=== PATIENT | male | born 1955 | race Caucasian/White ===

== ENCOUNTER 2016-12-05 23:57 | Emergency (ER) | payer BC ==
[~2016-12-05 23:57] MED LIST: ACTOS45 MG; ADULT ASPIRIN81 MG PO; ASPIR 8181 M1 PO; ASPIR 8181 MG; ATORVASTATIN CA40 M1 PO; AZOPT10 ML RIGHT EYE; BECONASE AQ25 GM; CLOPIDOGREL75 M1 PO; COLACE100 M1 PO; COSOPT EYE DROP10 ML RIGHT EYE; COZAAR50 M1 PO; ENTERIC COATED325 M PO; FERREX 150150 M1 PO; FEXOFENADINE HC60 MG; FISH OIL 1,2001 CAP PO; FLEXERIL10 MG PO; GLUCOPHAGE500 MG PO; LASIX40 M1 PO; LEVAQUIN500 M1 PO; LEVEMIR FL100 UNIT/2 SC; LEVEMIR100 UNITS/ SC; LISINOPRIL10 MG; METFORMIN HCL1000 MG; MULTIVITAMIN1 TAB; MULTIVITAMIN1 TAB PO; MULTIVITAMINS1 EAC6 PO; NAPROXEN500 MG PO; NORCO 5/325 TAB1 TAB PO; NOVOLOG FL100 UNIT/2 SC; NOVOLOG100 UNITS/ SC; PERCOCET 7.5/321 TA1 PO; POTASSIUM CHLO20 ME3 PO; PRED FORTE5 ML OP; QNASL8.7 G1; SKELAXIN800 MG PO; SODIUM CHLORIDE IV; TOPROL XL25 M1 PO; TRAVATAN Z5 M1 RIGHT EYE; TYLENOL EXTRA500 M1 PO; ULTRAM50 M1 PO; VANCOMYCIN IV; XALATAN2.5 M1 EACH EYE; ZOCOR20 MG; ZOFRAN ODT4 MG/UDTAB PO; ZOFRAN4 MG PO; ZOLOFT50 M1 PO; ZYRTEC1010 PO; [UNRECOGNIZED DRUG - OTHER] PO
[2016-12-06 00:11] LABS: CARBON DIOXIDE-VENOUS 29 mmol/L (21-33); CREATININE 1.03 mg/dl (0.67-1.17); GLUCOSE 279 mg/dl (65-120); POTASSIUM 4.1 mmol/L (3.5-5.3); SODIUM 135 mmol/L (135-146); eGFR VALUE FOR BLACK 89 mL/Min
[2016-12-06 00:13] LABS: BASO % 0.9 % (0-2); BASO ABSOLUTE COUNT 0.1 tho/cmm (0.0-0.2); EOS % 5.3 % (0-7); EOSINOPHIL ABSOLUTE COUNT 0.4 tho/cmm (0.0-0.7); HCT-HEMATOCRIT 35.9 % (36.0-53.5); HGB-HEMOGLOBIN 12.2 gm/dl (13.5-17.0); IMMATURE GRANULOCYTES ABSOLUTE 0.01 tho/cmm (0-0.03); IMMATURE GRANULOCYTES PERCENT 0.2 % (0-0.3); LYMPH ABSOLUTE COUNT 1.7 tho/cmm (0.8-4.5); MCH (MEAN CORPUSCULAR HGB) 28.1 pg (28.0-32.0); MCV (MEAN CELL VOLUME) 82.7 fl (82.0-96.0); MEAN PLATELET VOLUME 9.1 cmc (9.4-12.4); MONO % 11.1 % (0-12); MONOCYTE ABSOLUTE COUNT 0.7 tho/cmm (0.0-1.2); NEUTROPHIL ABSOLUTE COUNT 3.7 tho/cmm (1.6-8.0); NEUTROPHIL-AUTOMATED 3.7 tho/cmm (1.6-8.0); NEUTROPHILS % 56.5 % (40-80); PLATELET COUNT 206 tho/cmm (150-450); RED BLOOD COUNT 4.34 mil/cmm (4.40-5.70); WHITE BLOOD COUNT 6.6 tho/cmm (4.0-10.0)
[2016-12-06 00:18] LABS: INR 0.9 INR (0.9-1.1); PROTHROMBIN TIME 10.5 SECONDS (9.0-13.6)
[2016-12-06 00:35] LABS: ALB/GLOB RATIO 0.9 (0.8-2.0); ALBUMIN 3.3 g/dl (3.5-5.0); ALKALINE PHOSPHATASE 111 U/L (33-138); ALT/SGPT 46 U/L (12-78); ANION GAP 10 mmol/L (0-20); AST/SGOT 27 U/L (10-40); BILIRUBIN,TOTAL 0.3 mg/dl (0.0-1.5); BLOOD UREA NITROGEN 22 mg/dl (6-24); CALCIUM 8.9 mg/dl (8.5-10.5); CHLORIDE 100 mmol/l (96-110)
[2016-12-06 00:37] LABS: ESR-ERYTHROCYTE SED RATE 20 mm/hr (0-20)
[2017-01-19] MEDS ORDERED: ASPIRIN81 M1 PO (17:22)
[2017-01-19] MEDS ORDERED: ALLEGRA ALLERG180 M1 PO (17:22)
[2017-01-19] MEDS ORDERED: KEFLEX500 M4 PO (19:42)
== END 2016-12-06 02:15 ==
LOC: EDMED 23:57
PROVIDERS: Emergency Medicine
DX: R41.82 Altered mental status, unspecified (principal); I10 Essential (primary) hypertension; E11.43 Type 2 diabetes mellitus with diabetic autonomic (poly)neuropathy; K31.84 Gastroparesis; H40.9 Unspecified glaucoma; Z86.73 Personal history of transient ischemic attack (TIA), and cerebral infarction without residual deficits; Z88.0 Allergy status to penicillin; Z91.02 Food additives allergy status; Z79.899 Other long term (current) drug therapy
CPT/HCPCS: J7030